=== PATIENT | female | born 1935 | race Hispanic/Latino ===

== ENCOUNTER 2023-04-23 00:40 | Inpatient (IN) | payer OTHER, MEDICAID ==
[2023-04-23 01:08] LABS: Actual Bicarbonate (HCO3a) 27.3 mEq/L (22-28); Base Excess (BEa) 0.6 mEq/L (-2.0 to +3.0); CO2 Tension 55.3 mmHg (35.0-45.0); Calcium, Ionized (arterial) 1.22 mmol/L (1.12-1.30); Carboxyhemoglobin (COHb) 0.7 gm% (0.0-3.0); Hematocrit-ABG 27 % (36.0-47.0); Hemoglobin (Hb) 9.2 g/dL (12.0-16.0); O2 Tension (PaO2), arterial 75.6 mmHg (> 60.0); Potassium - ABG Lab 4.68 mmol/L (3.70-5.30); Puncture Site LRA; pH, Arterial 7.312 (7.35-7.45)
[2023-04-23 01:11] LABS: ALV-art Gradient 54.915 mmHg (0-20)
[2023-04-23 01:56] LABS: Bilirubin Neg (Negative); Blood, Urine 250 (Negative); Clarity Cloudy (Clear); Glucose, Urine (Dipstick) Normal (Negative); Ketone, Urine Negative (Negative); Leukocyte 100 (Negative); Nitrite Negative (Negative); Protein, Urine (Dipstick) 100 mg/dl (Neg-Trace); Urobilinogen Normal mg/dL (Less than 2)
[2023-04-23 02:03] LABS: #Eosinphils 0.2 10x3/uL (0.0-0.5); #Monocytes 0.6 10x3/uL (0.0-1.1); #Neutrophils 5.7 10x3/uL (1.5-8.4); %Basophils 0.4 % (0.0-2.0); %Eosinophils 2.6 % (0.0-6.0); %Lymphocytes 12.2 % (18.0-47.0); %Monocytes 8.3 % (0.0-10.0); %Neutrophils 75.8 % (40.0-75.0); Hematocrit 28.6 % (34.9-44.5); Hemoglobin 8.5 g/dL (12.0-15.5); Mean Corpuscular HGB CONC 29.7 g/dL (32.0-36.0); Mean Corpuscular Hemoglobin 25.4 pg (27.0-33.0); Mean Corpuscular Volume 85.4 fl (81.6-98.3); Mean Platelet Volume 10.7 fl (7.4-10.4); Platelet Count 348 10x3/uL (150-450); RBC Distribution Width 18.5 % (11.5-14.5); Red Blood Cell (RBC) Count 3.35 10x6/uL (3.90-5.03); White Blood Cell (WBC) Count 7.6 10x3/uL (3.5-10.5)
[2023-04-23 02:12] LABS: ALT (SGPT) 23 U/L (8-55); AST (SGOT) 36 U/L (5-34); Alkaline Phosphatase 71 U/L (40-110); Anion Gap 11 mmol/L (10-20); BUN (Urea Nitrogen) 76 mg/dL (9.8-20.1); Bilirubin, Total 0.4 mg/dL (0.2-1.2); Calc. Creatinine Clearance 0 mL/min (70-130); Calcium 9.1 mg/dL (7.8-10.44); Carbon Dioxide 30 mmol/L (23-31); Chloride 100 mmol/L (98-107); Estimated GFR 19; Globulin 3.7 g/dL (2.4-3.5); Glucose 117 mg/dL (83-110); Protein, Total 6.7 g/dL (5.8-8.1); Sodium 136 mmol/L (136-145)
[2023-04-23 02:18] LABS: Troponin I 0.024 ng/mL (< 0.028)
[2023-04-23 02:19] LABS: Bacteria/HPF 1+ HPF (None Seen); CAUTI Indications for Culture Alt mental st,lethar
[2023-04-23 02:20] LABS: Urine Culture Reflex Yes Yes
[2023-04-23] MEDS ORDERED: cefTRIAXone (ROCEPHIN) 1 GM VIAL ONE (02:35)
[2023-04-23] MEDS ORDERED: VANCOMYCIN 2 GRAM/400 ML BAG IVPB SCH (02:45)
[2023-04-23 03:31] VITALS: BMI 41.5
[2023-04-23 03:57] LABS: Hematocrit 26.9 % (34.9-44.5); Hemoglobin 8.1 g/dL (12.0-15.5); Platelet Count 339 10x3/uL (150-450)
[2023-04-23] MEDS ORDERED: Cefepime 2 GM in Sodium Chloride 0.9% 100 ML IVPB SCH (04:00)
[2023-04-23] MEDS ORDERED: Sodium Chloride 0.9% 1,000 ML IV SCH (04:00)
[2023-04-23] MEDS ORDERED: VANCOMYCIN 2 GRAM/400 ML BAG 2 GM in Premix Bag 1 BAG IVPB SCH (04:00)
[2023-04-23 04:07] LABS: Actual Bicarbonate (HCO3a) 31.3 mEq/L (22-28); Base Excess (BEa) 5.2 mEq/L (-2.0 to +3.0); CO2 Tension 54.9 mmHg (35.0-45.0); Calcium, Ionized (arterial) 1.19 mmol/L (1.12-1.30); Carboxyhemoglobin (COHb) 0.7 gm% (0.0-3.0); Hematocrit-ABG 26 % (36.0-47.0); Hemoglobin (Hb) 8.8 g/dL (12.0-16.0); O2 Tension (PaO2), arterial 69.1 mmHg (> 60.0); Potassium - ABG Lab 4.69 mmol/L (3.70-5.30); Puncture Site LRA; pH, Arterial 7.374 (7.35-7.45)
[2023-04-23 04:09] LABS: ALV-art Gradient 76.175 mmHg (0-20)
[2023-04-23 04:25] LABS: Troponin I 0.025 ng/mL (< 0.028)
[2023-04-23 08:16] LABS: #Eosinphils 0.2 10x3/uL (0.0-0.5); #Monocytes 0.9 10x3/uL (0.0-1.1); #Neutrophils 6.4 10x3/uL (1.5-8.4); %Basophils 0.3 % (0.0-2.0); %Eosinophils 2.4 % (0.0-6.0); %Lymphocytes 13.3 % (18.0-47.0); %Monocytes 9.9 % (0.0-10.0); %Neutrophils 73.6 % (40.0-75.0); Hematocrit 27.2 % (34.9-44.5); Hemoglobin 8.2 g/dL (12.0-15.5); Mean Corpuscular HGB CONC 30.1 g/dL (32.0-36.0); Mean Corpuscular Hemoglobin 25.7 pg (27.0-33.0); Mean Corpuscular Volume 85.3 fl (81.6-98.3); Mean Platelet Volume 10.8 fl (7.4-10.4); Platelet Count 294 10x3/uL (150-450); RBC Distribution Width 18.5 % (11.5-14.5); Red Blood Cell (RBC) Count 3.19 10x6/uL (3.90-5.03); White Blood Cell (WBC) Count 8.7 10x3/uL (3.5-10.5)
[2023-04-23 08:33] LABS: Troponin I 0.025 ng/mL (< 0.028)
[2023-04-23] MEDS: Pantoprazole 40 MG VIAL IVP SCH (08:33)
[2023-04-23] MEDS: Heparin 10,000 UNITS/ 10 ML VIAL SLOW IVP SCH (08:52)
[2023-04-23] MEDS: Heparin 25,000 units/D5W 500 ML IVPB SCH (08:53)
[2023-04-23] MEDS ORDERED: cefTRIAXone Sodium 1,000 MG in Syringe 0 ML IVPB SCH (10:00)
[2023-04-23 10:02] LABS: Anion Gap 15 mmol/L (10-20); BUN (Urea Nitrogen) 73 mg/dL (9.8-20.1); Calc. Creatinine Clearance 34 mL/min (70-130); Calcium 8.5 mg/dL (7.8-10.44); Carbon Dioxide 25 mmol/L (23-31); Chloride 104 mmol/L (98-107); Estimated GFR 21; Glucose 88 mg/dL (83-110); Magnesium 2.7 mg/dL (1.6-2.6); Potassium 4.7 mmol/L (3.5-5.1); Sodium 139 mmol/L (136-145)
[2023-04-23] MEDS: Lactated Ringer's 1,000 ML IV SCH (10:03)
[2023-04-23] MEDS: cefTRIAXone\\ROCEPHIN 1 GM in Sodium Chloride 0.9% 100 ML IVPB SCH (10:05)
[2023-04-23 16:06] LABS: PTT Greater than 139.0 sec (22.0-33.0)
[2023-04-24 02:36] LABS: #Eosinphils 0.1 10x3/uL (0.0-0.5); #Monocytes 0.6 10x3/uL (0.0-1.1); #Neutrophils 5.7 10x3/uL (1.5-8.4); %Basophils 0.4 % (0.0-2.0); %Lymphocytes 5.8 % (18.0-47.0); %Neutrophils 83.4 % (40.0-75.0); Hematocrit 26.2 % (34.9-44.5); Hemoglobin 7.7 g/dL (12.0-15.5); Mean Corpuscular HGB CONC 29.4 g/dL (32.0-36.0); Mean Corpuscular Hemoglobin 25.2 pg (27.0-33.0); Mean Corpuscular Volume 85.9 fl (81.6-98.3); Mean Platelet Volume 10.6 fl (7.4-10.4); Platelet Count 314 10x3/uL (150-450); RBC Distribution Width 18.6 % (11.5-14.5); Red Blood Cell (RBC) Count 3.05 10x6/uL (3.90-5.03); White Blood Cell (WBC) Count 6.9 10x3/uL (3.5-10.5)
[2023-04-24] MEDS: Heparin 25,000 units/D5W 500 ML IVPB SCH (02:44)
[2023-04-24 02:48] LABS: Anion Gap 14 mmol/L (10-20); BUN (Urea Nitrogen) 68 mg/dL (9.8-20.1); Calc. Creatinine Clearance 39 mL/min (70-130); Calcium 8.9 mg/dL (7.8-10.44); Carbon Dioxide 27 mmol/L (23-31); Chloride 102 mmol/L (98-107); Estimated GFR 25; Glucose 100 mg/dL (83-110); Potassium 4.7 mmol/L (3.5-5.1); Sodium 138 mmol/L (136-145)
[2023-04-24 03:10] LABS: PTT Greater than 139.0 sec (22.0-33.0)
[2023-04-24] MEDS ORDERED: Cefepime 1 GM in Sodium Chloride 0.9% 100 ML IVPB SCH (04:00)
[2023-04-24] MEDS: Lactated Ringer's 1,000 ML IV SCH (05:11)
[2023-04-24] MEDS: Pantoprazole 40 MG VIAL IVP SCH (07:55)
[2023-04-24] MEDS ORDERED: Acetaminophen 325 MG TAB PO PRN (08:50)
[2023-04-24] MEDS ORDERED: Ondansetron PF 4 MG/2 ML Vial IVP PRN (08:50)
[2023-04-24] MEDS ORDERED: Famotidine/PF 20 mg/2ml Vial SLOW IVP SCH (09:00)
[2023-04-24] MEDS ORDERED: Furosemide 40 MG/4 ML VIAL SLOW IVP SCH (10:30)
[2023-04-24] MEDS: cefTRIAXone\\ROCEPHIN 1 GM in Sodium Chloride 0.9% 100 ML IVPB SCH (10:46)
[2023-04-24] MEDS: Famotidine/PF 20 mg/2ml Vial SLOW IVP SCH (10:46)
[2023-04-24 16:51] LABS: Hematocrit 26.3 % (34.9-44.5); Hemoglobin 8.1 g/dL (12.0-15.5)
[2023-04-24] MEDS ORDERED: hydrALAZINE 20 MG/ML VIAL SLOW IVP PRN (19:45)
[2023-04-25 03:37] LABS: Hematocrit 24.5 % (34.9-44.5); Hemoglobin 7.4 g/dL (12.0-15.5); Platelet Count 300 10x3/uL (150-450)
[2023-04-25 03:43] LABS: Mean Corpuscular HGB CONC 29.8 g/dL (32.0-36.0); Mean Corpuscular Volume 83.9 fl (81.6-98.3); Mean Platelet Volume 11.4 fl (7.4-10.4); RBC Distribution Width 18.7 % (11.5-14.5); Red Blood Cell (RBC) Count 2.92 10x6/uL (3.90-5.03); White Blood Cell (WBC) Count 6.1 10x3/uL (3.5-10.5)
[2023-04-25 03:46] LABS: Anion Gap 12 mmol/L (10-20); BUN (Urea Nitrogen) 60 mg/dL (9.8-20.1); Calc. Creatinine Clearance 49 mL/min (70-130); Calcium 9.2 mg/dL (7.8-10.44); Carbon Dioxide 30 mmol/L (23-31); Chloride 103 mmol/L (98-107); Estimated GFR 32; Glucose 95 mg/dL (83-110); Sodium 141 mmol/L (136-145)
[2023-04-25] MEDS: Heparin 25,000 units/D5W 500 ML IVPB SCH (05:33)
[2023-04-25] MEDS: Famotidine/PF 20 mg/2ml Vial SLOW IVP SCH (08:19)
[2023-04-25] MEDS: Dextrose 5 %-0.45 % NaCl 1,000 ML IV SCH ×2 (08:19→19:44)
[2023-04-25] MEDS: Atorvastatin Calcium 40 MG TAB PO SCH (09:58)
[2023-04-25] MEDS: Calcitriol 0.25 MCG CAP PO SCH (09:59)
[2023-04-25] MEDS: Morphine 2 MG/ML VIAL SLOW IVP PRN ×2 (10:01→19:55)
[2023-04-25] MEDS: cefTRIAXone\\ROCEPHIN 1 GM in Sodium Chloride 0.9% 100 ML IVPB SCH (10:01)
[2023-04-25 13:30] LABS: Hematocrit 25.2 % (34.9-44.5); Hemoglobin 7.8 g/dL (12.0-15.5)
[2023-04-26 03:24] LABS: Hematocrit 25.4 % (34.9-44.5); Hemoglobin 7.7 g/dL (12.0-15.5); Mean Corpuscular HGB CONC 30.3 g/dL (32.0-36.0); Mean Corpuscular Hemoglobin 25.3 pg (27.0-33.0); Mean Corpuscular Volume 83.6 fl (81.6-98.3); Mean Platelet Volume 11.5 fl (7.4-10.4); Platelet Count 339 10x3/uL (150-450); RBC Distribution Width 18.7 % (11.5-14.5); Red Blood Cell (RBC) Count 3.04 10x6/uL (3.90-5.03); White Blood Cell (WBC) Count 6.1 10x3/uL (3.5-10.5)
[2023-04-26 03:39] LABS: Anion Gap 12 mmol/L (10-20); BUN (Urea Nitrogen) 44 mg/dL (9.8-20.1); Calc. Creatinine Clearance 64 mL/min (70-130); Calcium 8.8 mg/dL (7.8-10.44); Carbon Dioxide 29 mmol/L (23-31); Chloride 104 mmol/L (98-107); Estimated GFR 45; Glucose 136 mg/dL (83-110); Sodium 141 mmol/L (136-145)
[2023-04-26] MEDS: Heparin 10,000 UNITS/ 10 ML VIAL SLOW IVP SCH (04:07)
[2023-04-26] MEDS: Famotidine/PF 20 mg/2ml Vial SLOW IVP SCH (08:21)
[2023-04-26] MEDS: Morphine 2 MG/ML VIAL SLOW IVP PRN ×3 (08:21→21:53)
[2023-04-26] MEDS: Calcitriol 0.25 MCG CAP PO SCH (08:30)
[2023-04-26] MEDS: Atorvastatin Calcium 40 MG TAB PO SCH (08:30)
[2023-04-26] MEDS: cefTRIAXone\\ROCEPHIN 1 GM in Sodium Chloride 0.9% 100 ML IVPB SCH (09:49)
[2023-04-26] MEDS: Heparin 25,000 units/D5W 500 ML IVPB SCH (10:50)
[2023-04-26] MEDS: Dextrose 5 %-0.45 % NaCl 1,000 ML IV SCH (10:58)
[2023-04-26 11:22] LABS: PTT Greater than 139.0 sec (22.0-33.0)
[2023-04-26] MEDS ORDERED: NOREPINEPHRINE 8 MG/250 ML-D5W 250 ML ONE (23:01)
[2023-04-26] MEDS ORDERED: NOREPINEPHRINE 8 MG/250 ML-D5W 250 ML IVPB SCH (23:15)
[2023-04-26] MEDS ORDERED: Albumin 25% 25 GM/100 ML BOT IVPB SCH (23:45)
[2023-04-26] MEDS ORDERED: Lactated Ringer's 500 ML IV SCH (23:45)
[2023-04-27 01:39] VITALS: BP 116/69; TEMP 99.1
[2023-04-27] MEDS: Dextrose 5 %-0.45 % NaCl 1,000 ML IV SCH (02:26)
[2023-04-27] MEDS ORDERED: Lorazepam 2 MG/ML VIAL SLOW IVP PRN (03:56)
[2023-04-27] MEDS ORDERED: Scopolamine 1.5 mg/72 hour Patch TD SCH (04:00)
[2023-04-27] MEDS ORDERED: Morphine 2 MG/ML VIAL SLOW IVP PRN (04:04)
== END 2023-04-27 07:30 | disposition expired | DRG 189 ==
LOC: CSHERS 00:40 → CSHIMCU 03:12 → OBSVTOIN 03:13
PROVIDERS: ADMIT Family Medicine; ATTEND Family Medicine
PROC: 5A09357 Assistance with Respiratory Ventilation, Less than 24 Consecutive Hours, Continuous Positive Airway Pressure (ICD-10-PCS; principal; 2023-04-23)
PROC: 5A0935A Assistance with Respiratory Ventilation, Less than 24 Consecutive Hours, High Flow/Velocity Cannula (ICD-10-PCS; 2023-04-23)
PROC: 4A133R1 Monitoring of Arterial Saturation, Peripheral, Percutaneous Approach (ICD-10-PCS; 2023-04-23)
PROC: 3E033XZ Introduction of Vasopressor into Peripheral Vein, Percutaneous Approach (ICD-10-PCS; 2023-04-26)
PROC: 30233J1 Transfusion of Nonautologous Serum Albumin into Peripheral Vein, Percutaneous Approach (ICD-10-PCS; 2023-04-26)
DX: J96.21 Acute and chronic respiratory failure with hypoxia (principal); G93.41 Metabolic encephalopathy; N17.9 Acute kidney failure, unspecified; E66.2 Morbid (severe) obesity with alveolar hypoventilation; N39.0 Urinary tract infection, site not specified; I13.0 Hypertensive heart and chronic kidney disease with heart failure and stage 1 through stage 4 chronic kidney disease, or unspecified chronic kidney disease; N18.4 Chronic kidney disease, stage 4 (severe); J96.22 Acute and chronic respiratory failure with hypercapnia; I50.9 Heart failure, unspecified; E78.5 Hyperlipidemia, unspecified; W19.XXXD Unspecified fall, subsequent encounter; R40.0 Somnolence; Z66 Do not resuscitate; R13.12 Dysphagia, oropharyngeal phase; Z51.5 Encounter for palliative care; Z86.711 Personal history of pulmonary embolism; Z79.01 Long term (current) use of anticoagulants; Z91.81 History of falling; Z79.899 Other long term (current) drug therapy; Z87.448 Personal history of other diseases of urinary system; S00.03XD Contusion of scalp, subsequent encounter
CPT/HCPCS: 36415; 36416; 36600; 70450; 71045; 80048; 80053; 81001; 82140; 82805; 83605; 83735; 84484; 85025; 85027; 85730; 87040; 87086; 93005; 94640; 94660; 94760; 94762; 96374; C9113; J0360; J0692; J0696; J1644; J1940; J2060; J2272; J3370; J3490; J7042; J7050; J7120; S0028

== ENCOUNTER 2023-04-27 07:00 | Inpatient (IN) | payer OTHER | END 2023-04-27 07:01 | disposition E | DRG 951 | LOC: CSHIMCU 07:00 | PROVIDERS: ADMIT Family Medicine; ATTEND Family Medicine | DX: Z51.5 Encounter for palliative care (principal); J96.01 Acute respiratory failure with hypoxia; J96.02 Acute respiratory failure with hypercapnia; G93.41 Metabolic encephalopathy; N39.0 Urinary tract infection, site not specified; N17.9 Acute kidney failure, unspecified; G47.33 Obstructive sleep apnea (adult) (pediatric); N18.30 Chronic kidney disease, stage 3 unspecified ==